=== PATIENT | female | born 1950 | race Hispanic/Latino ===

== ENCOUNTER → 2016-11-27 | Day surgery (SDC) | payer MEDICARE, MEDICAID ==
[~2016-11-27] VITALS: Ht 157.5 cm; Wt 89.4 kg
[~2016-11-27] MED LIST: 0.9% Sodium Chloride 1,000 ML IV SCH; CHOL200047 PO; ESOM40CA41 PO; GABA-502 PO; MECL-114 PO; Sodium Chloride LOK Flush 10 mL Syringe IV PRN; VENL100T3 PO; VITA1CAP16 PO; fentaNYL-PF 50 mCg/mL 2 mL Inj IVPUSH PRN
[2016-11-27 14:34] VITALS: BP 109/67; PULSE 68; O2SAT 97
[2016-11-27 15:16] VITALS: BP 97/56; PULSE 72; RESP 15; O2SAT 92
[2016-11-27 15:25] VITALS: BP 105/60; PULSE 72; RESP 15; O2SAT 90
[2016-11-27 15:35] VITALS: BP 115/65; PULSE 71; RESP 15; O2SAT 91
--- NOTE | 2016-11-27 18:16 | ENDO ---
[address] [address] ENDOSCOPY PROCEDURE PATIENT: BENNETT SAUNDERS V : 1950 MR#: [id number] ADMIT: 11/27/2016 JOB ID: [id number] DATE OF SERVICE: 11/27/2016 TYPE OF OPERATION: Esophagogastroduodenoscopy, biopsy. PREOPERATIVE DIAGNOSIS(ES): Dysphagia. POSTOPERATIVE DIAGNOSIS(ES): Normal upper endoscopy, status post biopsy. ANESTHESIA: Fentanyl 125 mcg and Versed 7 mg IV administered. COMPLICATIONS: None. BLOOD LOSS: Minimal. DESCRIPTION OF PROCEDURE: After risks and benefits explained to the patient, informed consent was obtained. After anesthesia administered, upper endoscope was inserted in mouth, intubated into the esophagus, stomach, second portion of duodenum. Mucosa carefully examined. After procedure was done, the scope withdrawn, procedure terminated. FINDINGS: Upon inspection of the esophagus, esophagus was normal without masses, ulcers, lesions. Z-line located at 40 cm from incisors. Upon entering the stomach, stomach was also normal without masses, ulcers, or lesions. Retroflexion of the duodenal bulb, first and second portion normal. Biopsies taken of antrum, body, and distal esophagus. IMPRESSION: Normal upper endoscopy, status post biopsy. RECOMMENDATIONS: Await pathology results. Follow up in GI Clinic as needed.
--- NOTE | 2016-11-30 15:04 | PATH ---
SURGICAL PATHOLOGY Attending Physician:José Gutierrez MD CASE STATUS: Signed Out PATIENT NAME: BENNETT SAUNDERS V. PID: [id number] : 1950 DATE COLLECTED:11/27/2016 00:00 SPECIMEN: 1: Esophagus, Biopsy 2: Esophagus, Biopsy 3: Gastric, Biopsy 4: Stomach, Antrum, Biopsy CLINICAL HISTORY: 1). MID ESOPHAGUS 2). DISTAL ESOPHAGUS 3). GASTRIC BODY, RULE OUT H.PYLORI 4). ANTRUM FINAL DIAGNOSIS: 1-2: Mid, Distal Esophagus, Biopsies: Squamous epithelium with no diagnostic abnormality. Intraepithelial eosinophils are not increased. Negative for dysplasia or malignancy. 3-4: Gastric Body, Antrum, Biopsies: Gastric antral and body mucosa with no diagnostic abnormality. Helicobacter organisms not identified. Negative for intestinal metaplasia, dysplasia or malignancy. ICD10: R13.10 GROSS DESCRIPTION: The specimens are received in formalin, labeled with the patient's name, and sublabeled as the following: (1) mid esophagus; (2) distal esophagus; (3) gastric body; (4) antrum. (1) The specimen consists of multiple fragments of allen-white glistening translucent tissue (0.8 x 0.5 x 0.1 cm). Section code: (1A) tissue. Specimen entirely submitted. (2) The specimen consists of a fragment of allen-white glistening translucent tissue (0.3 x 0.2 x 0.1 cm). Section code: (2A) tissue. Specimen entirely submitted. (3) The specimen consists of multiple fragments of watson glistening semitranslucent tissue (0.7 x 0.4 x 0.1 cm in aggregate). Section code: (3A) tissue. Specimen entirely submitted. (4) The specimen consists of a fragment of watson glistening semitranslucent tissue (0.5 x 0.3 x 0.1 cm). Section code: (4A) tissue. Specimen entirely submitted. 11/29/16 ICD-9 CODES: CPT CODES: 1: 94831 2: 52341 3: 08953 4: 45449 Electronically Signed Out David Engel MD, Ph.D. [facility] [address] [place] [address], [place] [address] Technical component performed at [facility], [address], [place], [address]
== END | disposition home or self-care (01) ==
LOC: END 01:06
PROVIDERS: ATTEND Internal Medicine Gastroenterology
DX: R13.10 Dysphagia, unspecified (principal); M19.90 Unspecified osteoarthritis, unspecified site; F31.9 Bipolar disorder, unspecified; R42 Dizziness and giddiness; Z79.899 Other long term (current) drug therapy
CPT/HCPCS: 43239; G0500; J2250; J3010; J7030